=== PATIENT | male | born 1950 | race Caucasian/White ===

== ENCOUNTER → 2019-11-26 | Outpatient (CLI) | payer MEDICARE ==
--- NOTE | 2019-11-26 09:34 | RAD ---
Study: CT abdomen/pelvis without intravenous contrast Indication: Abdominal pain. Comparison: None. Technique: Helical CT imaging performed of the abdomen and pelvis without the use of intravenous contrast. Sagittal and coronal reformats were obtained. One or more of the following individualized dose reduction techniques were utilized for this examination: 1. Automated exposure control 2. Adjustment of the mA and/or kV according to patient size 3. Use of iterative reconstruction technique. Findings: Inherently limited evaluation without intravenous contrast. Chest: Calcific coronary artery disease. 3.5 mm pulmonary nodule in the right middle lobe, image 12 series 2. 3.5 mm nodule at the left lower lobe, image 2 series 2. A few smaller nodules are seen as well. Liver: Subcentimeter focus of low attenuation adjacent to the falciform ligament, image 37 series 2, statistically most likely to be benign in the absence of a known malignancy. Gallbladder/Biliary Tree: Within normal limits. Pancreas: Unremarkable. Spleen: Unremarkable. Adrenal Glands: Unremarkable. Kidneys/Ureters/Bladder: No complex cyst or mass. No collecting system dilatation. Mild circumferential wall thickening of the urinary bladder. Reproductive Organs: Enlarged prostate measuring 5.6 cm transverse. Colon: Pancolonic diverticulosis. Diverticulitis seen at the distal descending colon to the descending/sigmoid junction, image 78 series 2. Small foci of gas in the region of active inflammation appear contained within diverticuli as opposed to contained perforations. No abscess. Appendix: Normal. Small Bowel: Nonobstructed. Stomach: Poorly evaluated due to underdistention. Vasculature: Multifocal calcific atherosclerosis throughout the aorta and iliofemoral system. Nonaneurysmal aorta. Lymph Nodes: Within normal limits. Peritoneum and Body Wall: Very small fat-containing umbilical hernia. Bones: Scattered degenerative changes. No acute or aggressive osseous process. Miscellaneous: None. Impression: 1. Pancolonic diverticulosis complicated by acute diverticulitis at the distal descending colon to the descending/sigmoid junction. No complications of diverticulitis such as perforation or abscess formation seen at this time. No bowel obstruction. 2. Several pulmonary nodules at the lower lungs the largest of which measure up to 3.5 mm. Per Fleischner criteria, these do not warrant dedicated follow-up unless there are risk factors for lung malignancy in which case optional CT in 12 months could be performed. 3. Additional chronic findings as above. Electronically signed by: TYSHAWN BARNETT MD (11/26/2019 9:31 AM) [id number]
== END | disposition home or self-care (01) ==
LOC: PMG 08:42
PROVIDERS: ATTEND Physician Assistant Medical
DX: K57.30 Diverticulosis of large intestine without perforation or abscess without bleeding (principal); K57.32 Diverticulitis of large intestine without perforation or abscess without bleeding; I25.10 Atherosclerotic heart disease of native coronary artery without angina pectoris; R91.8 Other nonspecific abnormal finding of lung field; I70.0 Atherosclerosis of aorta; K42.9 Umbilical hernia without obstruction or gangrene
CPT/HCPCS: 74176